=== PATIENT | female | born 1995 | race Caucasian/White ===

== ENCOUNTER 2016-08-22 07:43 | Emergency (ER) | payer BC ==
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
[2016-08-22] MEDS ORDERED: NORMAL SALINE 1,000 ML IV ONE (09:25)
[2016-08-22] MEDS ORDERED: ONDANSETRON HCL/PF 2 MG/ML VIAL IV ONE (09:25)
[2016-08-22] MEDS ORDERED: ONDANSETRON HCL/PF 2 MG/ML VIAL ONE (09:34)
--- OUTSIDE RECORDS SUMMARY | 2016-08-22 09:47 | XMS REPORT | Continuity of Care Document ---
:1995 Author Organization [facility] Address [place] [address] Care Team Providers Name Role Phone Pilo Tomy Nava Primary Care Provider [phone] Source Comments This disclosure is being made pursuant to the [employer] program and maynot contain all information available regarding this patient.[facility] Active Allergies and Adverse Reactions Not on File Current Medications Be aware that medications may not be up to date as of this document. Alwaysverify current medications with the patient. Not on file Active Problems Not on file Social History Tobacco Use Types Packs/Day Years Used Date Never Assessed Plan of Care Health Maintenance Due Date Last Done Comments HPV Vaccine ([id number]) (1 of 3 - Female/Unknown 3 Dose 2005 Series) Chlamydia Screening 2010 Retired-Tetanus Vaccine Adult 2013 Retired-INFLUENZA VACCINE 01/06/2015 Pap Smear 2015 Results from Last 3 Months Not on file
[2016-08-22] MEDS ORDERED: MORPHINE SULFATE 2 MG/ML DISP.SYRIN IV ONE (09:48)
[2016-08-22] MEDS ORDERED: MORPHINE SULFATE 2 MG/ML DISP.SYRIN ONE (09:49)
[2016-08-22 13:30] VITALS: BP 120/73
== END 2016-08-22 11:40 | disposition home or self-care (01) ==
LOC: ER 07:43
DX: R51 Headache (principal); R11.0 Nausea; V49.40XA Driver injured in collision with unspecified motor vehicles in traffic accident, initial encounter; Y93.89 Activity, other specified; Y92.411 Interstate highway as the place of occurrence of the external cause

== ENCOUNTER 2018-05-02 05:00 | Inpatient (IN) ==
[2018-05-02] MEDS: RINGER'S SOLUTION,LACTATED 1,000 ML IV PRN ×2 (05:20→06:34)
[2018-05-02] MEDS ORDERED: ceFAZolin SODIUM/DEXTROSE,ISO 2 GM/50 ML BAG IV ONE ×2 (05:50→07:00)
[2018-05-02] MEDS ORDERED: OXYTOCIN 20 UNITS in RINGER'S SOLUTION,LACTATED 1,000 ML IV ONE ×3 (05:50→08:50)
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
[2018-05-02] MEDS ORDERED: BISACODYL 10 MG SUPP.RECT RC PRN (08:50)
[2018-05-02] MEDS ORDERED: KETOROLAC TROMETHAMINE 30 MG/ML VIAL IV PRN (08:50)
[2018-05-02] MEDS ORDERED: HYDROcodone/ACETAMINOPHEN 1 EACH TABLET PO PRN (08:50)
[2018-05-02] MEDS ORDERED: SENNOSIDES 8.6 MG TABLET PO PRN (08:50)
[2018-05-02] MEDS ORDERED: RINGER'S SOLUTION,LACTATED 1,000 ML IV ONE (08:50)
[2018-05-02] MEDS ORDERED: diphenhydrAMINE HCL 25 MG CAPSULE PO PRN (08:50)
[2018-05-02] MEDS ORDERED: SIMETHICONE 80 MG TAB.CHEW PO PRN (08:50)
[2018-05-02] MEDS ORDERED: ONDANSETRON HCL/PF 2 MG/ML VIAL IV PRN (08:50)
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
--- NOTE | 2018-05-02 09:41 | ANES ---
Post Anesthesia Discharge - Transfer of Care Transfer of Care handoff given to nurse: Yes - Discharge from PACU Discharge from PACU when meets criteria: Yes
[2018-05-02] MEDS: HYDROcodone/ACETAMINOPHEN 1 EACH TABLET PO PRN ×4 (09:56→20:13)
[2018-05-02] MEDS: DOCUSATE SODIUM 100 MG CAPSULE PO SCH ×2 (09:58→20:12)
--- NOTE | 2018-05-02 13:06 | ANES ---
Post Anesthesia Assessment - Vital Signs Vitals: Last Vital Signs Temp 36.4 C 05/02/18 12:31 Pulse 92 05/02/18 12:31 Resp 16 05/02/18 12:31 BP 117/61 05/02/18 12:31 Pulse Ox 97 05/02/18 12:31 Airway Patency: Normal - Mental Status Level Of Consciousness: Awake - Pain Level Pain Score: 5 - N/V Assessment Nausea/Vomiting Presence: None Dehydration:: No
--- NOTE | 2018-05-02 13:11 | ANES ---
Anesthesia Procedure Note Procedure Note: ANESTHESIA PROCEDURE NOTE Date of procedure:[]. 05/02/2018 Time of procedure:[]. 904 Performed by: Steve Ruano CRNA Slot Key Person: [] Natasha Hunter RN . Preprocedure diagnosis: []. Status post section. Desire for postoperative analgesia Post procedure diagnosis: Same. Procedure:[] Ultrasound-guided bilateral tap block Indications: []. Postoperative analgesia Findings: [] Patient placed in supine position in the PACU. Right abdominal wall was prepped with ChloraPrep. Ultrasound was utilized to identify fascial layer between internal oblique and trans-abdominus muscles. A 20-gauge 4 inch regional block needle was advanced under ultrasound guidance till needle was po sitioned just posterior to fascial layer. 20 mL of 0.25% Marcaine with epinephrine 1 200,000 was injected with adequate spread of local anesthesia noted. Procedure that was then repeated on patient's left side. EBL: Minimal. Fluids: N/A. Specimen: N/A. Post procedure condition: The patient tolerated the procedure well. No complications were noted. Thank you for this consultation Steve Ruano CRNA
[2018-05-02] MEDS ORDERED: MORPHINE SULFATE 2 MG/ML DISP.SYRIN IV PRN (13:14)
[2018-05-02] MEDS ORDERED: MORPHINE SULFATE 4 MG/ML SYRG IV ONE (13:14)
[2018-05-03] MEDS: HYDROcodone/ACETAMINOPHEN 1 EACH TABLET PO PRN ×5 (01:17→19:24)
[2018-05-03] MEDS: IBUPROFEN 800 MG TABLET PO PRN ×3 (01:17→15:33)
[2018-05-03] MEDS: DOCUSATE SODIUM 100 MG CAPSULE PO SCH ×2 (09:25→20:50)
--- NOTE | 2018-05-03 12:30 | PN ---
Subjective - Date and Time Seen Date: 05/03/18 Time: 12:29 Subjective Narrative: Pt without complaints Objective Objective Narrative: See vital signs - Review of Systems Generalized/Overall Review: Reports: No Symptoms Reported Misc: All systems neg except as marked - Vitals Vitals: Last Vital Signs Temp 36.5 C 05/03/18 11:54 Pulse 82 05/03/18 11:54 Resp 16 05/03/18 11:54 BP 119/75 05/03/18 11:54 Pulse Ox 98 05/03/18 11:54 - Exam Constitutional: Present: Alert, Oriented x3, Cooperative, No distress Abdomen: Present: soft, nontender, nondistended - incision c/d/i Extremity: Present: non-tender, no calf tenderness Skin Exam: Present: normal color, warm/dry, no cyanosis Appearance: Present: appropriate appearance Eye contact: Present: cooperative Thoughts: Present: normal thought pattern Cauti Physician Documentation - Urinary Catheter Management Urethral (Cano) Urethral Indwelling: No Date of Insertion: 05/02/18 Time of Insertion: 08:00 Date of Removal: 05/02/18 Time of Removal: 21:15 Assessment/Plan Plan Narrative: POD 1 s/p delivery Doing well Discharge POD 3
[2018-05-04] MEDS: HYDROcodone/ACETAMINOPHEN 1 EACH TABLET PO PRN ×2 (01:08→19:29)
[2018-05-04] MEDS: IBUPROFEN 800 MG TABLET PO PRN ×2 (01:08→09:00)
--- NOTE | 2018-05-04 07:44 | PN ---
Subjective - Date and Time Seen Date: 05/04/18 Time: 07:42 Subjective Narrative: Pt without complaints Objective Objective Narrative: See vital signs - Review of Systems Generalized/Overall Review: Reports: No Symptoms Reported Misc: All systems neg except as marked - Vitals Vitals: Last Vital Signs Temp 36.5 C 05/04/18 01:41 Pulse 71 05/04/18 01:41 Resp 16 05/04/18 01:41 BP 117/73 05/04/18 01:41 Pulse Ox 97 05/04/18 01:41 - Exam Constitutional: Present: Alert, Oriented x3, Cooperative, No distress Abdomen: Present: soft, nontender, nondistended - incision c/d/i Extremity: Present: non-tender, no calf tenderness, pedal edema Skin Exam: Present: normal color, warm/dry, no cyanosis Appearance: Present: appropriate appearance Eye contact: Present: cooperative Thoughts: Present: normal thought pattern Cauti Physician Documentation - Urinary Catheter Management Urethral (Cano) Urethral Indwelling: No Date of Insertion: 05/02/18 Time of Insertion: 08:00 Date of Removal: 05/02/18 Time of Removal: 21:15 Assessment/Plan Plan Narrative: POD 2 s/p delivery Doing well Discharge tomorrow - Problems/Diagnosis (1) Complete breech presentation Problem: Acute (2) Complete breech presentation Problem: Acute
[2018-05-04] MEDS: DOCUSATE SODIUM 100 MG CAPSULE PO SCH ×2 (09:00→21:20)
[2018-05-05] MEDS: HYDROcodone/ACETAMINOPHEN 1 EACH TABLET PO PRN (00:46)
[2018-05-05 08:35] VITALS: BP 125/82
[2018-05-05] MEDS: DOCUSATE SODIUM 100 MG CAPSULE PO SCH (09:43)
--- NOTE | 2018-05-05 11:33 | PN ---
Subjective - Date and Time Seen Date: 05/05/18 Subjective Narrative: post op day 3, s/p primary c/s for breech. doing well. no complaints. ambulating well and pain controlled. wants to go home. Objective - Vitals Vitals: Last Vital Signs Temp 36.5 C 05/05/18 08:32 Pulse 72 05/05/18 08:32 Resp 18 05/05/18 08:32 BP 125/82 05/05/18 08:32 Pulse Ox 99 05/05/18 08:32 - Exam Constitutional: Present: Alert, Oriented x3, Cooperative Respiratory: Present: no respiratory distress Cardiovascular/Chest: Present: normal peripheral pulses Abdomen: Present: soft, nontender, nondistended, other - fundum below umbilicus. Incision dry and clean. Extremity: Present: normal range of motion, no calf tenderness, lower extremity edema - 2+ bilaterally Skin Exam: Present: normal color, warm/dry, no cyanosis Appearance: Present: appropriate appearance Eye contact: Present: cooperative, good eye contact, normal speech Cauti Physician Documentation - Urinary Catheter Management Urethral (Caon) Urethral Indwelling: No Date of Insertion: 05/02/18 Time of Insertion: 08:00 Date of Removal: 05/02/18 Time of Removal: 21:15 Assessment/Plan Plan Narrative: A: post op day 3, s/p c/s, stable and well. Plan: will discharge home today. Susan Brown MD
== END 2018-05-05 14:00 | disposition home or self-care (01) | DRG 787 ==
LOC: OB 05:00
PROVIDERS: ADMIT Obstetrics & Gynecology; ATTEND Obstetrics & Gynecology
CPT/HCPCS: 59025; 86850; 86900

== ENCOUNTER 2020-08-12 04:54 | Inpatient (IN) ==
[2020-08-12] MEDS ORDERED: RINGER'S SOLUTION,LACTATED 1,000 ML IV PRN (04:56)
[2020-08-12] MEDS ORDERED: Oxytocin/Ringers Lactate 20 UNITS/1,000 ML BAG IV ONE (04:56)
[2020-08-12] MEDS ORDERED: BUPIVACAINE HCL/EPINEPHRINE 50 ML VIAL ONE (06:46)
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
[2020-08-12] MEDS ORDERED: GLYCOPYRROLATE 0.2 MG/ML VIAL ONE (07:08)
[2020-08-12] MEDS ORDERED: MIDAZOLAM HCL/PF 1 MG/ML VIAL ONE (07:08)
[2020-08-12] MEDS ORDERED: PROPOFOL VIAL IV ONE (07:08)
[2020-08-12] MEDS ORDERED: fentaNYL CITRATE/PF 50 MCG/ML AMPUL ONE (07:08)
[2020-08-12] MEDS ORDERED: NORMAL SALINE 20 ML VIAL ONE (07:09)
[2020-08-12] MEDS ORDERED: ceFAZolin SODIUM 1 GM VIAL ONE (07:10)
[2020-08-12] MEDS ORDERED: SIMETHICONE 80 MG TAB.CHEW PO PRN (09:06)
[2020-08-12] MEDS ORDERED: BISACODYL 10 MG SUPP.RECT RC PRN (09:06)
[2020-08-12] MEDS ORDERED: SENNOSIDES 8.6 MG TABLET PO PRN (09:06)
[2020-08-12] MEDS ORDERED: ONDANSETRON HCL/PF 2 MG/ML VIAL IV PRN (09:06)
[2020-08-12] MEDS ORDERED: HYDROmorphone HCL 2 MG/ML VIAL ONE (09:09)
--- NOTE | 2020-08-12 09:09 | OR ---
Operative Report - Dictated Report Narrative: Indication: 25-year-old 2 para 1 with prior admitted at 39w2d weeks for repeat low transverse section. status: Planned Pre Operative Diagnosis: Intrauterine at 39 weeks 2 days. Prior section x1. Post Operative Diagnosis: Same. Procedure: Repeat low transverse section. Surgeon: Mary Hughes DO Lining Vamper: OR Staff Anesthesia: Spinal, TAP block Estimated Blood Loss: 300 mL Urine Output: 100 mL clear urine Fluids Replacement: 1400 mL of crystalloid Drains: Garcia to gravity Surgical Complications: None Specimens: Placenta to freezer Findings: Male born at 0805 on 08/12/2021 with Apgars 8 and 9, weighing 3827 g in cephalic presentation. Normal uterus, tubes, ovaries. Omental adhesions to the anterior abdominal wall. Technique: The patient was taken to the operating room and placed in dorsal supine position with a left lateral tilt. After adequate spinal anesthesia, garcia catheter inserted, SCDs placed, and 2 g of Ancef given preoperatively, the abdominal cavity was entered using sharp and blunt dissection. Two rolled laps were placed in the pericolic gutters on either side of the uterus. A transverse incision was made in the lower uterine segment and extended laterally and upwardly with digital traction. Clear fluid was noted upon amniotomy. The infant was delivered easily. The cord was clamped and cut and was handed off to awaiting manager intel. The placenta was allowed to deliver spontaneously. The uterus was cleared of clot and debris. Uterine incision was closed with 0 Vicryl using a running stitch. A second imbricating layer was placed. Excellent hemostasis was noted. The rolled laps were removed from the abdominal cavitiy. The peritoneum was closed with a running 3-0 Monocryl. The same suture was used to approximate the rectus and pyramidalis muscles. The fascia was closed with a running 0 Vicryl. The subcutaneous layer was closed with a running 3-0 Monocryl. The same suture was used to approximate the subdermal layer. The skin was closed with a running 4-0 Monocryl and Dermabond. Sponge, lap, needle, and instrument count were correct x 2. Disposition: To post anesthesia care unit in good condition
[2020-08-12] MEDS ORDERED: HYDROmorphone HCL 1 MG/ML DISP.SYRIN IV ONE (09:13)
--- NOTE | 2020-08-12 09:24 | ANES ---
Anesthesia Procedure Note Procedure Note: ANESTHESIA PROCEDURE NOTE Date of Procedure: 08/13/2019 Time of procedure: 9:10 AM. Performed by: DAYO Hernandez CRNA, MSN Supervisor Pressing Department: Breana Traore RN. Preprocedure diagnosis: Post section pain. Post procedure diagnosis: Same. Procedure: Bilateral TAP block Indications: Post section pain relief. Findings: See below. Details of the procedure: The patient was brought to PACU and placed in the supine position. The patient was prepped with chlorhexidine and using ultrasound guidance the 3 abdominal muscular planes were identified and lidocaine 1% was infiltrated to the skin of the intended injection site. Under ultrasound guidance the the internal oblique and transverse this abdominis muscle layers were approached with visualization of a 4 inch block needle until the tip of the needle rested in the plane between the muscles. 25 mL bupivacaine 0.5% with 1-200,000 epinephrine was injected and the procedure was repeated on the other side. Please see radiology/ultrasound report for details and images of the procedure. EBL: 0 Fluids: N/A. Specimen: N/A. Post procedure condition: The patient tolerated the procedure well. No complications were noted. Thank you for this consultation. Han Booth CRNA, ARNP, MSN
[2020-08-12] MEDS: IBUPROFEN 800 MG TABLET PO PRN ×2 (09:52→18:59)
[2020-08-12] MEDS: oxyCODONE HCL/ACETAMINOPHEN 1 TAB TABLET PO PRN ×3 (09:52→19:02)
--- NOTE | 2020-08-12 10:34 | PN ---
Progess Note - Interim Date: 08/12/20 Time: 10:34 History for MU History for MU Definition: * The number of deliveries resulting in a live the patient experienced prior to current hospitalization * The previous delivery of live twins or any live multiple gestation is considered one live event. *If primagravida or nulliparous is documented select zero for the number of previous live births. Live Events: Live Events: 1
--- NOTE | 2020-08-12 10:50 | ANES ---
Post Anesthesia Discharge - Transfer of Care Transfer of Care handoff given to nurse: Yes - Discharge from PACU Discharge from PACU when meets criteria: Yes - Discharge to ASU Discharge to ASU-no complications/pt stable: Yes
--- NOTE | 2020-08-12 10:51 | ANES ---
Post Anesthesia Assessment - Vital Signs Vitals: Last Vital Signs Temp 36.6 C 08/12/20 09:25 Pulse 80 08/12/20 09:25 Resp 13 08/12/20 09:25 BP 121/58 08/12/20 09:25 Pulse Ox 99 08/12/20 09:25 Airway Patency: Normal - Mental Status Level Of Consciousness: Awake, Alert, Appropriate - Pain Level Pain Score: 2 - occasional cramping - N/V Assessment Nausea/Vomiting Presence: None Dehydration:: No
[2020-08-12] MEDS: ENOXAPARIN SODIUM 40 MG/0.4 ML SYRG SC SCH (16:32)
[2020-08-12] MEDS: DOCUSATE SODIUM 100 MG CAPSULE PO SCH (22:01)
[2020-08-13] MEDS: IBUPROFEN 800 MG TABLET PO PRN ×2 (03:29→12:44)
[2020-08-13] MEDS: oxyCODONE HCL/ACETAMINOPHEN 1 TAB TABLET PO PRN ×2 (03:29→12:45)
[2020-08-13] MEDS ORDERED: ceFAZolin SODIUM 1 GM VIAL IV PRN (06:00)
[2020-08-13] MEDS ORDERED: FERROUS SULFATE 325 MG TABLET PO SCH (09:00)
[2020-08-13] MEDS ORDERED: PRENATAL VITS96/IRON FUM/FOLIC 1 TAB TABLET PO SCH (09:00)
--- NOTE | 2020-08-13 09:16 | PN ---
Subjective - Date and Time Seen Date: 08/13/20 Time: 09:15 Objective - Vitals Vitals: Last Vital Signs Temp 36.6 C 08/13/20 07:44 Pulse 95 08/13/20 07:44 Resp 18 08/13/20 07:44 BP 114/64 08/13/20 07:44 Pulse Ox 96 08/13/20 07:44 Patient denies complaints. Tolerating regular diet. Ambulating without difficulty. Pain well controlled. Lochia wnl. Breast-feeding well. Abdomen - soft, appropriately tender Incision -clean, dry, intact uterus - firm, at umbilicus -1 No calf tenderness Impression: Post op day #1 s/p repeat section. Plan: Continue routine post-operative/ care [facility]i Physician Documentation - Urinary Catheter Management Urethral ([facility]) Date of Insertion: 08/12/20 Time of Insertion: 07:50 Date of Removal: 08/12/20 Time of Removal: 20:41
[2020-08-13] MEDS: DOCUSATE SODIUM 100 MG CAPSULE PO SCH ×2 (10:54→21:28)
[2020-08-13] MEDS: ENOXAPARIN SODIUM 40 MG/0.4 ML SYRG SC SCH (17:31)
[2020-08-14] MEDS: IBUPROFEN 800 MG TABLET PO PRN ×2 (01:08→07:16)
[2020-08-14 07:27] VITALS: BP 121/70
--- NOTE | 2020-08-14 08:25 | PN ---
Subjective - Date and Time Seen Date: 08/14/20 Time: 08:23 Objective - Vitals Vitals: Last Vital Signs Temp 36.5 C 08/14/20 07:25 Pulse 73 08/14/20 07:25 Resp 18 08/14/20 07:25 BP 121/70 08/14/20 07:25 Pulse Ox 97 08/14/20 07:25 Patient denies complaints. Ambulating well. Tolerating regular diet. Pain well controlled. Breast-feeding. Lochia wnl. Abdomen - soft, appropriately tender Incision -clean, dry, intact uterus - firm, at umbilicus -2 No calf tenderness Impression: Post op day #2 s/p repeat section. Plan: Continue routine post-operative/ care Cauti Physician Documentation - Urinary Catheter Management Urethral (Cano) Date of Insertion: 08/12/20 Time of Insertion: 07:50 Date of Removal: 08/12/20 Time of Removal: 20:41 Assessment/Plan - Problems/Diagnosis (1) Previous section Problem: Chronic (2) Status post repeat low transverse section Problem: Acute (3) Anemia affecting Problem: Acute Qualifiers: Trimester: third trimester Qualified Code(s): O99.013 - Anemia complicating , third trimester
--- NOTE | 2020-08-14 08:29 | DS ---
OB Discharge Summary (1) Status post repeat low transverse section Status: Acute (2) Previous section Status: Chronic (3) Anemia affecting Status: Acute Qualifiers: Trimester: third trimester Qualified Code(s): O99.013 - Anemia complicating , third trimester Delivery Date: 08/12/20 Delivery Time: 08:05 :: 2 Para:: 2 Gestational weeks:: 39 Gestational days:: 3 Intrapartum Procedures: Secondary Section, Delivery-Low Transverse, Anesthesia - Spinal /OP Complications: No Complications Discharge Diagnosis: Term -Delivered - Discharge Information Date of Discharge: 08/14/20 Hospital Course: 25-year-old G2 now P2 admitted at 39-3/7 weeks for repeat low transverse section. Her surgery and course were uncomplicated. She was discharged early on day 2 per her request. Routine discharge instructions were given. Disposition: Home self-care Condition: Good Referrals: Aixa Smith DO [Primary Care Provider] - Activity on Discharge:: Activity as tolerated, Pelvic Rest, No lifting Discharge Diet: General/regular food Additional Patient Instructions (free text): [facility] follow up appointment is on 08/17/20 at 12:45 PM with . Prescriptions (Any new or edited meds): Ibuprofen [Motrin] 200 - 800 mg PO Q6H PRN #100 tab PRN Reason: Pain oxyCODONE HCL/ACETAMINOPHEN [Percocet 5 MG/325 MG] 1 tab PO Q4H PRN #10 tablet PRN Reason: Moderate Pain Transmission Status: Received by [facility] #[id number] Complete Home Medications List: Complete Home Medication List: prenat.vits,eli,rby-[id number]-[id number] 1 tab PO DAILY 01/14/20 ferrous sulfate 325 mg (65 mg iron) tablet 325 mg PO DAILY 07/07/20 Ibuprofen [Motrin] 200 - 800 mg PO Q6H PRN #100 tab 08/14/20 oxyCODONE HCL/ACETAMINOPHEN [Percocet 5 MG/325 MG] 1 tab PO Q4H PRN #10 tablet 08/14/20 - Plan Discharge to:: Home Follow up in office in:: 2 weeks - [place] Information Weight (Grams): 3,827 Sex: Male Score 1 min: 8 Score 5 min: 9 Infant Complications: None
== END 2020-08-14 11:45 | disposition home or self-care (01) | DRG 788 ==
LOC: OB 04:54
PROVIDERS: ADMIT Obstetrics & Gynecology; ATTEND Obstetrics & Gynecology